=== PATIENT | female | born 1980 | race Caucasian/White ===

== ENCOUNTER → 2017-04-26 13:12 | Outpatient (CLI) | payer OTHER, SELFPAY ==
[2017-04-26 13:38] LABS: Basophils % 0.6 % (0.1-2.0); Eosinophils # 0.1 K/mm3 (0.0-0.4); Eosinophils % 1.6 % (0.1-12.0); Hematocrit 41.5 % (37.0-47.0); Hemoglobin 13.6 g/dL (12.2-16.2); Lymphocytes # 2.4 K/mm3 (0.7-4.5); Mean Corpuscular HGB Conc 32.8 g/dL (31.8-35.4); Mean Corpuscular Hemoglobin 29.1 pg (27.0-31.2); Mean Platelet Volume 7.8 fl (7.4-10.4); Monocytes # 0.4 K/mm3 (0.1-1.0); Monocytes % 5.6 % (1.7-9.3); Neutrophils # 4.1 K/mm3 (1.8-7.8); Neutrophils % 58.1 % (37.0-80.0); Platelet Count 298 K/mm3 (142-424); Red Blood Count 4.66 M/mm3 (4.20-5.40); Red Cell Distribution Width 12.8 % (11.5-17.5); White Blood Count 7.1 K/mm3 (4.8-10.8)
[2017-04-26 15:17] LABS: Alanine Aminotransferase 20 U/L (12-78); Albumin Level 3.7 gm/dL (3.4-5.0); Albumin/Globulin Ratio 1.1 (1.1-1.8); Alkaline Phosphatase 64 U/L (46-116); Anion Gap 11.8 mEq/L (5-15); Aspartate Amino Transferase 19 U/L (15-37); Bilirubin,Total 0.2 mg/dL (0.2-1.0); Blood Urea Nitrogen 15 mg/dL (7-18); Calcium 9.1 mg/dL (8.5-10.1); Carbon Dioxide 25 mmol/L (21.0-32.0); Chloride 104 mmol/L (98-107); Cholesterol 230 mg/dL (140-200); Creatinine,Serum 0.94 mg/dL (0.55-1.02); Estimated Glomerular Filt Rate > 60 ml/min (>60); GFR (African American) > 60 ML/MIN (>60); Globulin 3.4 gm/dl (1.3-3.2); Glucose 101 mg/dL (74-106); Potassium 4.8 mmoL/L (3.5-5.1); Sodium 136 mmol/L (136-145); Thyroid Stimulating Hormone 3.53 uIU/ml (0.358-3.740); Total Protein,Serum 7.1 gm/dL (6.4-8.2)
== END ==
PROVIDERS: PCP Nuclear Medicine Nuclear Cardiology; Visit Provider Nuclear Medicine Nuclear Cardiology
DX: R06.02 Shortness of breath (principal); R00.2 Palpitations
CPT/HCPCS: 36415; 80053; 82465; 84443; 85025

== ENCOUNTER → 2018-11-20 09:48 | Outpatient (CLI) | payer OTHER, SELFPAY ==
[2018-11-20 10:32] LABS: Basophils % 0.4 % (0.1-2.0); Eosinophils # 0.1 K/mm3 (0.0-0.4); Eosinophils % 1.5 % (0.1-12.0); Lymphocytes # 2.1 K/mm3 (0.7-4.5); Lymphocytes % 21.4 % (10-50); Mean Corpuscular HGB Conc 31.8 g/dL (31.8-35.4); Mean Corpuscular Hemoglobin 29.1 pg (27.0-31.2); Mean Corpuscular Volume 91.4 fl (81-99); Monocytes # 0.5 K/mm3 (0.1-1.0); Monocytes % 4.6 % (1.7-9.3); Neutrophils % 72.1 % (37.0-80.0); Platelet Count 259 K/mm3 (142-424); Red Blood Count 4.81 M/mm3 (4.20-5.40); Red Cell Distribution Width 12.8 % (11.5-17.5); White Blood Count 9.6 K/mm3 (4.8-10.8)
[2018-11-20 11:27] LABS: Hemoglobin A1C 5.9 % (0.0-7.0)
[2018-11-20 11:58] LABS: Chol/HDL Ratio 3.8 (1-3.5); Cholesterol 195 mg/dL (140-200); HDL Cholesterol 52 mg/dL (29-89); LDL Cholesterol 108 mg/dL (0-130); Thyroid Stimulating Hormone 1.53 uIU/ml (0.358-3.740); Triglycerides 173 mg/dL (30-200); VLDL Cholesterol 35 mg/dL (0-40)
== END ==
PROVIDERS: Visit Provider Psychiatry & Neurology Psychiatry
DX: F31.9 Bipolar disorder, unspecified (principal)
CPT/HCPCS: 36415; 80061; 83036; 84443; 85025

== ENCOUNTER → 2020-03-31 09:19 | Outpatient (CLI) | payer MEDICAID, SELFPAY ==
[2020-03-31 10:10] LABS: Basophils # 0.1 K/mm3 (0-0.2); Basophils % 0.9 % (0.1-2.0); Eosinophils # 0.1 K/mm3 (0.0-0.4); Hematocrit 43.4 % (37.0-47.0); Hemoglobin 14.5 g/dL (12.2-16.2); Lymphocytes # 2.8 K/mm3 (0.7-4.5); Lymphocytes % 40.4 % (10-50); Mean Corpuscular HGB Conc 33.5 g/dL (31.8-35.4); Mean Corpuscular Hemoglobin 29.1 pg (27.0-31.2); Mean Corpuscular Volume 86.8 fl (81-99); Mean Platelet Volume 7.6 fl (7.4-10.4); Monocytes # 0.4 K/mm3 (0.1-1.0); Monocytes % 5.9 % (1.7-9.3); Neutrophils # 3.6 K/mm3 (1.8-7.8); Neutrophils % 50.9 % (37.0-80.0); Platelet Count 327 K/mm3 (142-424); Red Cell Distribution Width 13.4 % (11.5-17.5)
[2020-03-31 10:55] LABS: Chloride 99 mmol/L (98-107); Potassium 4.3 mmoL/L (3.5-5.1); Sodium 136 mmol/L (136-145)
[2020-03-31 10:58] LABS: Alanine Aminotransferase 30 U/L (12-78); Albumin Level 4.7 g/dl (3.5-5.0); Albumin/Globulin Ratio 1.6 (1.1-1.8); Alkaline Phosphatase 78 U/L (38-126); Anion Gap 13.3 mEq/L (5-15); Aspartate Amino Transferase 38 U/L (14-36); Bilirubin,Total 0.3 mg/dl (0.2-1.3); Blood Urea Nitrogen 21 mg/dl (7-17); Calcium 9.7 mg/dl (8.4-10.2); Carbon Dioxide 28 mmol/L (22.0-30.0); Chol/HDL Ratio 5.2 (1-3.5); Cholesterol 319 mg/dl (140-200); Estimated Glomerular Filt Rate 62 ml/min (>60); GFR (African American) 75 ML/MIN (>60); Glucose 102 mg/dl (74-100); HDL Cholesterol 61 mg/dl (40-60); Total Protein,Serum 7.7 g/dl (6.3-8.2); Triglycerides 384 mg/dl (30-150); VLDL Cholesterol 77 mg/dL (0-40)
[2020-03-31 11:09] LABS: Direct LDL Cholesterol 175.77 mg/dL (100-129)
[2020-03-31 11:19] LABS: Amphetamine/Metha Screen,Urine Negative ng/ml (<1000); Barbiturates Screen,Urine Negative ng/ml (<200)
[2020-03-31 11:20] LABS: Benzodiazepines Screen,Urine Negative ng/ml (<200)
[2020-03-31 11:21] LABS: Opiate Screen,Urine Negative ng/ml (<300)
[2020-03-31 11:22] LABS: Phencyclidine Screen,Urine Negative ng/ml (<25)
[2020-03-31 11:23] LABS: Cannabinoid Screen,Urine Negative ng/ml (<50)
[2020-03-31 11:24] LABS: Cocaine Screen,Urine Negative ng/ml (<300); Methadone Screen,Urine Positive ng/ml (<300)
[2020-03-31 11:29] LABS: Thyroid Stimulating Hormone 5.08 uIU/mL (0.465-4.68)
[2020-03-31 11:49] LABS: Hemoglobin A1C 5.4 % (4.0-6.0)
== END ==
PROVIDERS: Visit Provider Psychiatry & Neurology Psychiatry
DX: F31.32 Bipolar disorder, current episode depressed, moderate (principal)
CPT/HCPCS: 36415; 80053; 80061; 80305; 83036; 84443; 85025

== ENCOUNTER 2020-08-23 16:21 | Emergency (ER) | payer MEDICAID, SELFPAY ==
[2020-08-23 16:30] VITALS: BP 124/76; PULSE 91; RESP 20; TEMP 36.8; O2SAT 100; BMI 33.5
[2020-08-23 17:07] VITALS: BP 124/76; PULSE 91; RESP 20; TEMP 36.8; O2SAT 100
--- NOTE | 2020-08-23 17:30 | HMH.EDUTC ---
[facility] [place] Disposition Clinical Impression: Foreign body in ear Qualifiers: Encounter type: initial encounter Laterality: left Qualified Code(s): T16.2XXA - Foreign body in left ear, initial encounter Disposition: Home, Self-Care Condition on Discharge: Good Instructions: DI for Removal of Foreign Body From Ear Additional Instructions: The ant was removed from your ear, watch area and look for other insects to help protect from another insect crawling in your ear Return if needed Follow up with Family Doctor if you start having pain in your ear Straight to ER if any life threatening symptoms Referrals: Quinten Ashby [Primary Care Provider] - As needed Time of Disposition: 17:32 Medical Decision Making - Dax Inquiry Pt receiving controlled substance: No Dax was queried for this patient: No Vital Signs: 08/23/20 16:30 Temperature 98.2 F Temperature Source Oral Pulse Rate [Right Brachial] 91 H Respiratory Rate 20 Blood Pressure [Right Arm] 124/76 Blood Pressure Mean [Right Arm] 92 Blood Pressure Source [Right Arm] Automatic Cuff Blood Pressure Position [Right Arm] Sitting 02 Sat by Pulse Oximetry 100 Oxygen Delivery Method Room Air [facility] [place] HPI - General Stated complaint: ant in left ear Time Seen by Provider: 08/23/20 16:55 Mode of Arrival: Ambulatory Source of Information: Patient Limitations: No Limitations Description of Symptoms (Recalled from Triage Doc. by RN): PATIENT C/O ANT IN EAR HEENT Symptoms (Recalled from RN notes): Yes Resp Symptoms (Recalled from RN notes): No Skin Symptoms (Recalled from RN notes): No MS Symptoms (Recalled from RN notes): No Functional Status (Recalled from RN notes): WNL - History of Present Illness Provider Complaint: Patients states that she has been having problems with ants at her house Patient states that she was laying down taking a nap and felt like something crawled into her left ear States that she could feel it crawling so she came in to get it taken out - Related Data Home Medications Medication Instructions Recorded Confirmed ARIPiprazole [Abilify 10mg 10 mg PO DAILY 02/10/19 02/10/19 Tablet] Buprenorphine HCl/Naloxone HCl 1 tab PO DAILY 02/10/19 02/10/19 [Buprenorphin-Naloxon 8-2 mg Sl] Linaclotide [Linzess] 290 mcg PO DAILY 02/10/19 02/10/19 Trazodone HCl 50 mg PO HS 02/10/19 02/10/19 hydrOXYzine pamoate [Vistaril 25mg 25 mg PO BID PRN 02/10/19 02/10/19 capsule] lamoTRIgine [Lamictal] 25 mg PO DAILY 02/10/19 02/10/19 polyethylene glycoL 3350 [Miralax 17 gm PO DAILY 02/10/19 02/10/19 17gm Packet] Previous Rx's Medication Instructions Recorded cephALEXin [Keflex 500mg Cap] 500 mg PO Q6H #40 cap 02/10/19 Allergies Allergy/AdvReac Type Severity Reaction Status Date / Time Penicillins Allergy Verified 02/10/19 15:57 Sulfa (Sulfonamide Allergy Verified 02/10/19 15:57 Antibiotics) - Worker's Comp Is this a Worker's Comp case?: No [facility] History - Hepatitis A Screen Drug use history?: No High risk sexual behaviors?: No History of sexually transmitted infection?: No Currently employed?: No Childcare worker?: No Do you have indoor plumbing?: Yes Do you have electricity?: Yes Attestation statement:: This patient has been screened for Hepatitis A risk factors. I have reviewed the patient's past medical history: Yes Fractures: Yes - Social History Smoking Status: Current every day smoker Tobacco Type: cigarettes # Packs/Day (cigarettes): 1 Alcohol Intake: never Occupational Status: other ROS Obtained: Yes All systems reviewed & no additional complaints, Yes Systems reviewed as appropriate & no additional complaints - ENT Ears, Nose, Mouth, and Throat: Reports system reviewed and no additional complaints, except as docu, Reports other (feels like ant crawled into her left ear) Physical Exam - General General appearance: alert, in no apparent distress - Expanded ENT Exam TM/Canal exam: Lef
== END 2020-08-23 17:11 | disposition home or self-care (01) ==
PROVIDERS: Emergency Provider Nurse Practitioner; PCP Family Medicine
DX: T16.2XXA Foreign body in left ear, initial encounter (principal); F17.210 Nicotine dependence, cigarettes, uncomplicated; Z88.0 Allergy status to penicillin; Z88.2 Allergy status to sulfonamides
CPT/HCPCS: 69200; 99202; G0463

== ENCOUNTER 2021-08-21 10:34 | Emergency (ER) | payer MEDICAID, SELFPAY ==
[2021-08-21 10:34] VITALS: BP 109/77; PULSE 83; RESP 16; TEMP 36.6; O2SAT 98; BMI 33.5
[2021-08-21 10:40] VITALS: BP 109/77; PULSE 83; RESP 16; TEMP 36.7; O2SAT 98; BMI 15.0
--- NOTE | 2021-08-21 10:56 | HMH.EDUTC ---
[facility] [place] Disposition Clinical Impression: Abscess Disposition: Home, Self-Care Condition on Discharge: Good Instructions: Clindamycin, DI for Skin Abscess Additional Instructions: *Start antibiotic(s) immediately and be sure to take as ordered for the FULL length of time although you may be feeling better or start to see improvement in the next 24-48 hours *Monitor closely. Outlined redness so that you can monitor easier. Follow up immediately for new or worsening symptoms including but not limited to redness, swelling, streaking from site fever or chills. *Warm compress 15 minutes 3-4 times day *Never squeeze or pop these on your own. Seek immediate medical attention next time this occurs *Monitor Temp. Tylenol every 4 hours as needed and ibuprofen every 6 hours as needed (as long as your primary care doctor has told you that it is ok to take both. For fever, aches, pain. ER if no less that 101 despite Tylenol and ibuprofen Follow up with your family doctor/primary care physician in the next 48-72 hours if no improvement Prescriptions: clindamycin HCL [Clindamycin HCl] 300 mg PO Q8H 7 Days #21 cap Transmission Status: Pending to [facility] #[id number] Referrals: Quinten Ashby [Primary Care Provider] - As needed Time of Disposition: 11:08 Medical Decision Making - Dax Inquiry Pt receiving controlled substance: No Dax was queried for this patient: No Vital Signs: 08/21/21 10:34 08/21/21 10:40 Temperature 98 F 98.0 F Temperature Source Oral Oral Pulse Rate [Radial] 83 83 Respiratory Rate 16 16 Blood Pressure [Right Arm] 109/77 L 109/77 L Blood Pressure Mean [Right Arm] 87 87 Blood Pressure Source [Right Arm] Automatic Cuff Blood Pressure Position [Right Arm] Sitting Sitting 02 Sat by Pulse Oximetry 98 98 Oxygen Delivery Method Room Air Room Air - Lab Data Lab results reviewed: Yes: I reviewed the patient's lab results. Lab Results 08/21/21 11:05: [facility]st Clinic Negative [facility] [place] HPI - General Stated complaint: pain/swelling knot on rt foot Time Seen by Provider: 08/21/21 10:56 Mode of Arrival: Ambulatory Source of Information: Patient Limitations: No Limitations Description of Symptoms (Recalled from Triage Doc. by RN): PATIENT C/O PAIN AND REDNESS TO TOP OF RIGHT FOOT X 4 WEEKS AFTER SHOOTING METH INTO FOOT HEENT Symptoms (Recalled from RN notes): No Resp Symptoms (Recalled from RN notes): No Skin Symptoms (Recalled from RN notes): Yes MS Symptoms (Recalled from RN notes): Yes Functional Status (Recalled from RN notes): WNL - History of Present Illness Provider Complaint: Patient states that she shot up meth in the top of her right foot about 4 weeks ago and since then she has had some redness and swelling states that for the last couple of days it is more red, warm and swollen so today she came in worried she may have an infection - Related Data Home Medications Medication Instructions Recorded Confirmed ARIPiprazole [Abilify 10mg 20 mg PO DAILY 02/10/19 08/21/21 Tablet] lamoTRIgine [Lamictal] 25 mg PO DAILY 02/10/19 08/21/21 Previous Rx's Medication Instructions Recorded clindamycin HCL [Clindamycin HCl] 300 mg PO Q8H 7 Days #21 cap 08/21/21 Allergies Allergy/AdvReac Type Severity Reaction Status Date / Time Penicillins Allergy Verified 02/10/19 15:57 Sulfa (Sulfonamide Allergy Verified 02/10/19 15:57 Antibiotics) - Worker's Comp Is this a Worker's Comp case?: No [facility] History - Hepatitis A Screen Attestation statement:: This patient has been screened for Hepatitis A risk factors. I have reviewed the patient's past medical history: Yes Fractures: Yes - Social History Smoking Status: Current every day smoker Tobacco Type: cigarettes # Packs/Day (cigarettes): 1 Alcohol Intake: never Occupational Status: other ROS Obtained: Yes All systems reviewed & no additional complaints, Yes Systems reviewed as appropriate & no additional complai
[2021-08-21 11:06] LABS: UTC Pregnancy Test, Urine Negative (Negative)
[2021-08-21 11:18] VITALS: BP 109/77; PULSE 83; RESP 16; TEMP 36.7; O2SAT 98
== END 2021-08-21 11:19 | disposition home or self-care (01) ==
PROVIDERS: Emergency Provider Nurse Practitioner; PCP Family Medicine
DX: L02.611 Cutaneous abscess of right foot (principal); Z88.0 Allergy status to penicillin; Z88.2 Allergy status to sulfonamides; F17.210 Nicotine dependence, cigarettes, uncomplicated
CPT/HCPCS: 81025; 99212; G0463